=== PATIENT | female | born 1995 | race Caucasian/White ===

== ENCOUNTER 2017-01-17 09:42 | Emergency (ER) | payer OTHER ==
[~2017-01-17] VITALS: Ht 157.5 cm; Wt 65.5 kg
[2017-01-17 09:46] VITALS: Ht 157.5 cm; Wt 65.5 kg
[2017-01-17] MEDS ORDERED: ONDANSETRON 4 MG INJ IV STA (10:24)
[2017-01-17] MEDS ORDERED: SOD CHLORIDE 0.9% 1,000 ML IV STA (10:24)
[2017-01-17 10:54] LABS: ADD SCAN DIFF NO
[2017-01-17 11:01] LABS: BASOPHIL # 0.1 10^3/ul (0.0-0.1); BASOPHILS % 0.4 % (0.0-2.0); EOSINOPHILS # 0.1 10^3/ul (0.0-0.5); EOSINOPHILS % 0.5 % (0.0-7.0); HEMATOCRIT 42.8 % (37.0-47.0); HEMOGLOBIN 13.8 g/dl (12.0-16.0); LYMPHOCYTES # 1.1 10^3/ul (0.8-2.9); LYMPHOCYTES % 8.2 % (15.0-51.0); MEAN CORPUSCULAR HEMOGLOBIN 28.5 pg (29.0-33.0); MEAN CORPUSCULAR HGB CONC 32.2 g/dl (32.0-37.0); MEAN CORPUSCULAR VOLUME 88.4 fl (82.0-101.0); NEUTROPHIL # 11.3 10^3/ul (1.6-7.5); NEUTROPHILS % 83.5 % (39.0-77.0); PLATELET COUNT 307 10^3/UL (140-415); RED BLOOD COUNT 4.84 10^6/ul (4.20-5.40); RED CELL DISTRIBUTION WIDTH 13.5 % (11.5-14.5); WHITE BLOOD COUNT 13.5 10^3/ul (4.8-10.8)
[2017-01-17 11:06] LABS: ALBUMIN 4.8 g/dl (3.3-4.9)
[2017-01-17 11:08] LABS: BILIRUBIN,INDIRECT 0.5 mg/dl (0-1.1); BILIRUBIN,TOTAL 0.5 mg/dl (0.2-1.3); CREATININE 0.67 mg/dl (0.44-1.00)
[2017-01-17 11:09] LABS: ALBUMIN/GLOBULIN RATIO 1.26; CALCIUM 9.4 mg/dl (8.4-10.2); TOTAL PROTEIN 8.6 g/dl (6.1-8.1)
[2017-01-17 11:19] LABS: ADD UMIC YES; URINE BILIRUBIN (Dip) NEGATIVE (NEGATIVE); URINE BLOOD (Dip) TRACE (NEGATIVE); URINE COLOR LT. YELLOW (YELLOW); URINE GLUCOSE (Dip) NEGATIVE (NEGATIVE); URINE KETONES (Dip) NEGATIVE (NEGATIVE); URINE LEUKOCYTE ESTERASE (Dip) TRACE (NEGATIVE); URINE NITRITE (Dip) NEGATIVE (NEGATIVE); URINE TOTAL PROTEIN (Dip) NEGATIVE (NEGATIVE); URINE UROBILINOGEN (Dip) 0.2 E.U./dL (0.1-1.0)
--- NOTE | 2017-01-17 11:35 | RADRPT ---
PROCEDURE: CT Abdomen and Pelvis without contrast. CLINICAL INDICATION: Right flank pain. TECHNIQUE: Routine tomographic images of the abdomen and pelvis were obtained from the domes of th e diaphragm to the symphysis pubis. The patient was scanned withoutoral or intravenous contrast. C oronal and sagittal reformatted images were obtained from the axial source images. Images were revie wed on a high-resolution PACS workstation. The total exam CTDI equals 13.37 mGy and the total exam D LP equals 730.93 mGy-cm. One or more of the following dose reduction techniques were used: Automat ed exposure control, adjustment of the mA and / or kV according to patient size, or use of iterative reconstruction technique. COMPARISON: None. FINDINGS: The visualized portions of the lung bases are clear. Evaluation of the intra-abdominal solid org ans is limited on this noncontrast examination. The liver appears normal in size. There is no intr a or extrahepatic biliary dilatation. The gallbladder is unremarkable by CT criteria. The spleen, pancreas, and adrenal glands are unremarkable. The kidneys are symmetric in size. No renal, ureteral, or bladder calculi are identified. No perine phric inflammatory changes are identified. There is mild dilatation of the right ureter. The urinary bladder wall is mildly thickened. The bowel demonstrates normal course and caliber. There is no evidence of bowel obstruction. The appendix is normal in appearance. No intraperitoneal free fluid, free air or abscess is identified. The uterus and adnexa are unremarkable. The aorta is normal in caliber. No retroperitoneal, mesen teric, or inguinal lymphadenopathy is identified. The osseous structures are unremarkable. No significant subcutaneous soft tissue abnormalities are seen. IMPRESSION: 1. Limited, noncontrast CT the abdomen and pelvis. 2. There is mild distention of the right ureter. No renal, ureteral or bladder calculi are seen. Findings may reflect recently passed stone or ascending urinary tract infection. Clinical correlati on and correlation with urinalysis is recommended. 3. Mild circumferential bladder wall thickening, at least partially related to under distension. RPTAT: HH .Yoselin Gallagehr MD, MD Date Time Electronically viewed and signed by .Yoselin Gallagher MD, on 01/17/2017 11:35 .Toya
[2017-01-17] MEDS ORDERED: NITR-58 PO (11:42)
[2017-01-17] MEDS ORDERED: PHEN-538 PO (11:42)
[2017-01-17] MEDS ORDERED: morphine 4 MG/ML VIAL IV STA (11:50)
[2017-01-17 12:03] LABS: BACTERIA,URINE MODERATE; SQUAMOUS EPITHELIAL CELL,UR FEW; URINE RBCS 0-2 /HPF (0)
--- NOTE | 2017-01-17 12:05 | ERD ---
ER Documentation Chief Complaint Date/Time DATE: 01/17/17 TIME: 12:02 Chief Complaint R back pain (hx ovarian cyst)- motrin @ 0830 HPI This is a 21-year-old female with a history of ovarian cyst presenting to the emergency department complaining of right flank pain that radiates to her pelvic region for 1 day. Patient states that she feels like she has a fever at home but not denies any current fever now. She states that she did have a couple episodes of vomiting and diarrhea last night. Patient denies any vaginal discharge, dysuria, hematuria,. Patient states that she is sexually active with protection. She states her last menstrual period was every 22nd. Patient states that she took Motrin at 830 this morning ROS All systems reviewed and are negative except as per history of present illness. Medications Home Meds Active Scripts Phenazopyridine Hcl* (Pyridium*) 200 Mg Tab, 200 MG PO TID Y for URINARY PAIN, # 10 TAB Prov:CALEB JAQUEZ PA-C 01/17/17 Nitrofurantoin Monohyd Macrocr* (Macrobid*) 100 Mg Capsr, 100 MG PO BID for 7 Days, CAP Prov:CALEB JAQUEZ PA-C 01/17/17 PMhx/Soc Medical and Surgical Hx: pt denies Medical Hx, pt denies Surgical Hx Hx Alcohol Use: Yes (socially) Hx Substance Use: No Hx Tobacco Use: No Smoking Status: Never smoker Physical Exam Vitals Vital Signs Date Time Temp Pulse Resp B/P Pulse Ox O2 Delivery O2 Flow Rate FiO2 01/17/17 09:46 99.0 105 18 115/70 99 Physical Exam GENERAL: well-developed/well-nourished, in no apparent distress, non-toxic appearing HENT: NC/AT, moist mucous membranes EYES: Conjunctiva normal NECK: Supple, no lymphadenopathy PULM: CTA bilaterally, no rales, rhonchi, or wheezing heard CV: Normal S1S2, RRR, good capillary refill GI: Soft, non-distended, tender to palpation in all quadrants, mostly in the the right pelvic region Normal bowel sounds, no masses or organomegaly felt on exam No gross peritonitis, no bruits Negative Rovsing, negative Zacarias, negative McBurney's point, Negative CVAT BACK: No masses EXT: No clubbing, cyanosis, or edema NEURO: Alert and Orientated SKIN: Intact, normal turgor PSYCH: Normal mood and mentation Result Diagram: 01/17/17 1040 01/17/17 1040 Results 24 hrs Laboratory Tests Test 01/17/17 10:40 Alanine Aminotransferase (ALT/SGPT) 23IU/L Albumin 4.8g/dl Albumin/Globulin Ratio 1.26 Alkaline Phosphatase 79IU/L Anion Gap 20 Aspartate Amino Transf (AST/SGOT) 19IU/L Basophils # 0.110^3/ul Basophils % 0.4% Blood Urea Nitrogen 12mg/dl Calcium Level 9.4mg/dl Carbon Dioxide Level 26mmol/L Chloride Level 102mmol/L Creatinine 0.67mg/dl Direct Bilirubin 0.00mg/dl Eosinophils # 0.110^3/ul Eosinophils % 0.5% Globulin 3.80g/dl Glucose Level 97mg/dl Hematocrit 42.8% Hemoglobin 13.8g/dl Indirect Bilirubin 0.5mg/dl Lipase 82U/L Lymphocytes # 1.110^3/ul Lymphocytes % 8.2% Mean Corpuscular Hemoglobin 28.5pg Mean Corpuscular Hemoglobin Concent 32.2g/dl Mean Corpuscular Volume 88.4fl Mean Platelet Volume 10.0fl Monocytes # 1.010^3/ul Monocytes % 7.0% Neutrophils # 11.310^3/ul Neutrophils % 83.5% Nucleated Red Blood Cells # 0.010^3/ul Nucleated Red Blood Cells % 0.0/100WBC Platelet Count 19024^3/UL Potassium Level 4.0mmol/L Red Blood Count 4.8410^6/ul Red Cell Distribution Width 13.5% Sodium Level 144mmol/L Total Bilirubin 0.5mg/dl Total Protein 8.6g/dl Urine Bacteria MODERATE Urine Bilirubin NEGATIVE Urine Clarity CLEAR Urine Color LT. YELLOW Urine Glucose NEGATIVE% Urine Hemoglobin TRACE Urine Ketones NEGATIVE Urine Leukocyte Esterase TRACE Urine Microscopic RBC 0-2/HPF Urine Microscopic WBC 0-2/HPF Urine Nitrite NEGATIVE Urine Specific [place] 1.020 Urine Squamous Epithelial Cells FEW Urine Total Protein NEGATIVE Urine Urobilinogen 0.2 E.U./dL Urine pH 7.5 White Blood Count 13.510^3/ul Current Medications Medications (Trade) Dose Ordered Sig/Meghan Route PRN Reason Start Time Stop Time Status Last Admin Dose Admin Sodium Chloride (NS) 1,000 ml @ 1,000 mls/hr Q1H STAT IV 01/17/17 10:24 01/17/17 11:23 DC 01/17/17 10:44 Ondansetron HCl (Zofran Inj) 4 mg ONCE STAT IV 01/17/17 10:24 01/17/17 10:27 DC 01/17/17 10:44 Morphine Sulfate (morphine) 4 mg ONCE STAT IV 01/17/17 11:50 01/17/17 11:51 DC 01/17/17 11:54 PROCEDURE: CT Abdomen and Pelvis without contrast. CLINICAL INDICATION: Right flank pain. TECHNIQUE: Routine tomographic images of the abdomen and pelvis were obtained from the domes of the diaphragm to the symphysis pubis. The patient was scanned withoutoral or intravenous contrast. Coronal and sagittal reformatted images were obtained from the axial source images. Images were reviewed on a high-resolution PACS workstation. The total exam CTDI equals 13.37 mGy and the total exam DLP equals 730.93 mGy-cm. One or more of the following dose reduction techniques were used: Automated exposure control, adjustment of the mA and / or kV according to patient size, or use of iterative reconstruction technique. COMPARISON: None. FINDINGS: The visualized portions of the lung bases are clear. Evaluation of the intra -abdominal solid organs is limited on this noncontrast examination. The liver appears normal in size. There is no intra or extrahepatic biliary dilatation. The gallbladder is unremarkable by CT criteria. The spleen, pancreas, and adrenal glands are unremarkable. The kidneys are symmetric in size. No renal, ureteral, or bladder calculi are identified. No perinephric inflammatory changes are identified. There is mild dilatation of the right ureter. The urinary bladder wall is mildly thickened. The bowel demonstrates normal course and caliber. There is no evidence of bowel obstruction. The appendix is normal in appearance. No intraperitoneal free fluid, free air or abscess is identified. The uterus and adnexa are unremarkable. The aorta is normal in caliber. No retroperitoneal, mesenteric, or inguinal lymphadenopathy is identified. The osseous structures are unremarkable. No significant subcutaneous soft tissue abnormalities are seen. IMPRESSION: 1. Limited, noncontrast CT the abdomen and pelvis. 2. There is mild distention of the right ureter. No renal, ureteral or bladder calculi are seen. Findings may reflect recently passed stone or ascending urinary tract infection. Clinical correlation and correlation with urinalysis is recommended. 3. Mild circumferential bladder wall thickening, at least partially related to under distension. RPTAT: HH .Yoselin Gallagher MD, MD Date Time Electronically viewed and signed by .Yoselin Gallagher MD, on 01/17/2017 11 :35 .G/ Procedures/MDM This is a 21-year-old female presenting to the emergency room complaining of right-sided pelvic pain and right flank pain for 1 day. Patient states that she has had a couple episodes of vomiting diarrhea. My differentials include but not limited to a urinary tract infection, mild gastritis, pyelonephritis, nephrolithiasis, appendicitis, ovarian torsion, ovarian ruptured cyst, diverticulitis, and other acute abdominal conditions. Patient likely has a urinary tract infection however a passed urinary stone cannot be completely ruled out. In addition patient may have a viral gastroenteritis or food poisoning. Patient appears well, she has stable vital signs she does not seem to be in any acute distress. IV access was established in the ED. Patient was given 1 L fluids and lab work was done. CBC did not show any evidence of significant leukocytosis or anemia. Patient had a white count of 13.5 likely due to stress reaction. There is no evidence of renal, liver or electrolyte abnormalities. Urinalysis showed trace leukocyte esterase with white count. Patient and nature of her condition a CT of the abdomen and pelvis was done without contrast, radiologist stated. CT abdomen and pelvis without contrast: 1. Limited, noncontrast CT the abdomen and pelvis. 2. There is mild distention of the right ureter. No renal, ureteral or bladder calculi are seen. Findings may reflect recently passed stone or ascending urinary tract infection. Clinical correlation and correlation with urinalysis is recommended. 3. Mild circumferential bladder wall thickening, at least partially related to under distension. There was no evidence of any stone however patient may have passed stone or there is a urine send a urinary tract infection according to the radiology report. In the ED patient was given morphine, Zofran and ceftriaxone. A prescription for Cipro was provided. I discussed the patient to return to the emergency department for any worsening symptoms. She understands and agrees with this plan. She stable for discharge Departure Diagnosis: Primary Impression: UTI (urinary tract infection) Condition: Stable Patient Instructions: Understanding Urinary Tract Infections (UTIs) Referrals: [facility] [address] [facility] [address] [place] [address] [address] [place] [address] [address] [place] [address] [place] [address] [address] [facility] [address] [facility] [address] [facility] [id number] [address] [facility] [address] [place] [address] [facility] [address] [place] [address] [facility] [id number] [address] [facility] [address] [address] [place]END[place], JANEY [address] [facility]. [address], [facility] [address] [address] [place], [place] [id number] Additional Instructions: Visite a oleksandr connell para un EXAMEN.Regrese a estas instalaciones si no se mejora kamilah esperbamos o kamilah le dijimos. [place] toda la medicina noble y kamilah se le indic. Regrese a estas instalaciones si no se mejora kamilah esperbamos o kamilah le dijimos. CALEB JAQUEZ PA-C Jan 17, 2017 12:05
[2017-01-17] MEDS ORDERED: CIPR500T4 PO (12:10)
[2017-01-17 13:56] VITALS: BP 129/66; PULSE 69; RESP 17; TEMP 98.8
== END 2017-01-17 13:56 | disposition home or self-care (01) ==
LOC: FTE 09:42
DX: N39.0 Urinary tract infection, site not specified (principal); R11.10 Vomiting, unspecified; R10.2 Pelvic and perineal pain
CPT/HCPCS: 74176; 80053; 81001; 83690; 85025; 87591; J2270; J2405; J7030; 36415; 81003; 96374; 96375